=== PATIENT | male | born 1985 | race Caucasian/White ===

== ENCOUNTER 2020-03-03 13:49 | Emergency (ER) | payer SELFPAY ==
[~2020-03-03] VITALS: Ht 177.8 cm; Wt 68.2 kg
[~2020-03-03 13:49] MED LIST: CIPRO 500MG TA500 MG PO; FLOMAX 0.40.4 MG/CAP PO; NO HOME MEDICATIONS; NO HOME MEDS; NORCO 325 MG-51 TAB PO; PERCOCET 325 MG1 TA2 PO; PYRIDIUM 100MG100 MG PO; ULTRAM 50MG TAB50 MG PO; ZOFRAN8 MG PO
[2020-03-03] MEDS ORDERED: CEPHALEXIN500 M1 PO (15:09)
[2020-03-03 15:56] VITALS: BP 138/78; PULSE 70; TEMP 97.8
== END 2020-03-03 15:46 | disposition home or self-care (01) ==
LOC: COL.ER 13:49
DX: S56.428A Laceration of extensor muscle, fascia and tendon of left little finger at forearm level, initial encounter (principal); Z23 Encounter for immunization; Z79.891 Long term (current) use of opiate analgesic; W31.2XXA Contact with powered woodworking and forming machines, initial encounter; Y99.0 Civilian activity done for income or pay